=== PATIENT | female | born 2000 | race Hispanic/Latino ===

== ENCOUNTER 2021-10-12 18:24 | Emergency (ER) | payer OTHER ==
[2021-10-13 21:55] LABS: SARS-CoV-2 PCR by NAA Not Detected (NotDetected)
== END 2021-10-12 19:49 | disposition home or self-care (01) ==
LOC: MADERS 18:24
DX: J20.8 Acute bronchitis due to other specified organisms (principal); F17.210 Nicotine dependence, cigarettes, uncomplicated; Z20.822 Contact with and (suspected) exposure to COVID-19
CPT/HCPCS: 71046; 87804; 94640; 96372; J1040; J7620; U0003; U0005

== ENCOUNTER 2024-04-28 18:18 | Emergency (ER) | payer OTHER, SELFPAY ==
[2024-04-28] MEDS ORDERED: Ipratropium/Albuterol 3 ML NEB ONE (18:45)
[2024-04-28] MEDS ORDERED: predniSONE 20 MG TAB ONE (19:12)
== END 2024-04-28 19:30 | disposition home or self-care (01) ==
LOC: MADERS 18:18
DX: B34.9 Viral infection, unspecified (principal); J45.901 Unspecified asthma with (acute) exacerbation; F17.210 Nicotine dependence, cigarettes, uncomplicated; F17.290 Nicotine dependence, other tobacco product, uncomplicated
CPT/HCPCS: 87400; 87426; J7512; J7620